=== PATIENT | female | born 1990 | race Caucasian/White ===

== ENCOUNTER → 2016-05-15 | Outpatient (REF) | payer MEDICARE, MEDICAID ==
[~2016-05-15] MED LIST: CYMB60CA3 PO; DULO30CA PO; FERR140T PO; FERR15DR9 PO; IBUP80TA PO; KEPP500T6 PO; YAZ3TAB PO
[2016-05-15 13:11] LABS: BASO % 0.1 % (0.0-1.0); EOS % 0.1 % (0.0-3.0); LARGE UNSTAINED CELL # 0.2 K/mm3 (0.0-0.4); LARGE UNSTAINED CELL % 2.8 % (0.0-4.0); LYMPH # 1.9 K/mm3 (1.5-6.5); LYMPH % 35.1 % (24.0-44.0); MEAN CORPUSCULAR HEMOGLOBIN 28.6 pg (27.0-33.0); MEAN CORPUSCULAR HGB CONC 32.4 g/dl (32.0-36.5); MEAN CORPUSCULAR VOLUME 88.5 fl (80.0-96.0); MONO # 0.2 K/mm3 (0.0-0.8); MONO % 4.6 % (0.0-5.0); NEUTROPHILS % 57.4 % (36.0-66.0); PLATELET COUNT, AUTOMATED 180 k/mm3 (150-450); RED CELL DISTRIBUTION WIDTH 13.6 % (11.5-14.5); WHITE BLOOD COUNT 5.3 K/mm3 (4.0-10.0)
[2016-05-15 13:55] LABS: ALT/SGPT 16 U/L (12-78); AST/SGOT 14 U/L (15-37)
[2016-05-15 13:56] LABS: ERYTHROCYTE SEDIMENTATION RATE 21 mm/hr (0-20)
== END ==
LOC: M LABNEURO 09:56
PROVIDERS: ATTEND Physician Assistant Medical
DX: G40.909 Epilepsy, unspecified, not intractable, without status epilepticus (principal); R51 Headache; M54.2 Cervicalgia

== ENCOUNTER → 2016-07-31 | Outpatient (REF) | payer MEDICARE, MEDICAID | LOC: M LAB REF 12:49 | PROVIDERS: ATTEND Specialist | DX: Z34.82 Encounter for supervision of other normal pregnancy, second trimester (principal) ==

== ENCOUNTER → 2016-08-15 | Outpatient (REF) | payer MEDICARE, MEDICAID | LOC: M LAB REF 13:05 | PROVIDERS: ATTEND Specialist | DX: Z34.81 Encounter for supervision of other normal pregnancy, first trimester (principal); N39.0 Urinary tract infection, site not specified ==

== ENCOUNTER → 2016-10-21 | Outpatient (CLI) | payer MEDICARE, MEDICAID ==
[~2016-10-21] MED LIST changes: +FERR15DR2 PO; -FERR15DR9 PO; +KEPP1TAB PO; -KEPP500T6 PO; +YAZ1TAB PO; -YAZ3TAB PO
--- NOTE | 2016-10-21 15:38 | REP ---
Obstetric ultrasound for anatomy: There is a single intrauterine gestation in a vertex presentation. There is motion and cardiac activity. The heart rate is 141 beats per minute. The placenta is posterior without placenta previa or abruptio and demonstrating grade zero maturity. The amniotic fluid volume subjectively is normal. The cervix measures 5.4 cm length. The maternal adnexa and cul-de-sac are unremarkable. Based on today's ultrasound the gestational age is 18-week 6 days with an HANNAH of 03/18/2017. weight is 279 grams (0 pounds, 9 ounces). This is the 58 percentile for 18 weeks 6 days. The following anatomic structures are identified and are unremarkable: Cranium, choroid plexus, cavum septum pellucidum, cerebellum, cisterna magna, lungs, left ventricular cardiac outflow tract, kidneys, bladder, spine, and upper lower extremities. Suboptimally demonstrated because of position are the intracranial lateral ventricles, facial profile, four-chamber view of the heart, cardiac right ventricular outflow tract and three-vessel cord. A followup study dedicated to these structures might be considered. Otherwise, there are no anomalies. Signed by Fletcher Encarnacion MD 10/21/2016 03:30 P
== END ==
LOC: M SMT 13:50
PROVIDERS: ATTEND Specialist
DX: Z36 Encounter for antenatal screening of mother (principal); Z3A.18 18 weeks gestation of pregnancy

== ENCOUNTER → 2016-11-14 | Outpatient (CLI) | payer MEDICARE, MEDICAID ==
[2016-11-14 13:32] LABS: MEAN CORPUSCULAR HEMOGLOBIN 31.7 pg (27.0-33.0); MEAN CORPUSCULAR HGB CONC 33.8 g/dl (32.0-36.5); MEAN CORPUSCULAR VOLUME 93.6 fl (80.0-96.0); RED CELL DISTRIBUTION WIDTH 14.2 % (11.5-14.5); WHITE BLOOD COUNT 6.4 K/mm3 (4.0-10.0)
[2016-11-14 13:46] LABS: FOLATE > 24.0 NG/ML; VITAMIN B12 LEVEL 321 PG/ML
== END ==
LOC: M SMT 11:50
PROVIDERS: ATTEND Advanced Practice Midwife
DX: R51 Headache (principal); K91.2 Postsurgical malabsorption, not elsewhere classified

== ENCOUNTER → 2016-11-20 | Outpatient (CLI) | payer MEDICARE, MEDICAID ==
--- NOTE | 2016-11-20 11:50 | REP ---
OBSTETRIC SONOGRAPHY: HISTORY: Supervision of , followup anatomy. FINDINGS: Scanning demonstrates a viable single intrauterine gestation in a variable lie. motion is observed and heart rate is recorded at 136 beats per minute. Closed cervical length measured transabdominally is 6.0 cm. Amniotic fluid is subjectively normal. A posterior placenta is seen grade 0 without evidence of previa or abruption. There has been appropriate interval growth. Exam quality is inhibited by maternal body habitus. Left ventricular cardiac outflow tract view is less than optimally achieved today, however this was observed previously. The following additional anatomic structures are identified and felt to be unremarkable today: cranium, choroid plexus, cavum, cerebellum and posterior fossa, face and profile, lungs, four-chamber heart with right ventricular outflow tract view, diaphragm, left-sided stomach, abdominal wall cord insertion, three-vessel cord, kidneys and bladder, spine, upper and lower extremities. Biometry Chart: BPD 5.7 cm = 23 weeks 4 days HC 21.1 cm = 23 weeks 1 day AC 19.1 cm = 23 weeks 6 days FL 3.9 cm = 22 weeks 5 days HL 4.0 cm = 24 weeks 1 day CD 2.2 cm = 20 weeks 5 days HC/AC ratio normal 1.11. Cephalic index normal 0.76. Estimated weight 582 grams, 1 pound 4 ounces, 49th percentile for 23 weeks 1 day. IMPRESSION: Viable single intrauterine gestation at 22 weeks 6 days by today's composite sonographic criteria. Expected gestational age estimate based on prior sonography is 23 weeks 1 day. HANNAH by prior sonography March 18, 2017. There has been appropriate interval growth. anatomic survey is felt to be complete. Signed by Abner Cardozo MD 11/20/2016 01:43 P
== END ==
LOC: M SMT 10:02
PROVIDERS: ATTEND Advanced Practice Midwife
DX: Z34.82 Encounter for supervision of other normal pregnancy, second trimester (principal); Z3A.23 23 weeks gestation of pregnancy

== ENCOUNTER → 2016-11-20 | Outpatient (CLI) | payer MEDICARE, MEDICAID | LOC: M SMT 10:05 | PROVIDERS: ATTEND Physician Assistant Medical | DX: Z51.81 Encounter for therapeutic drug level monitoring (principal); Z79.899 Other long term (current) drug therapy; R56.9 Unspecified convulsions ==

== ENCOUNTER → 2016-12-11 | Outpatient (CLI) | payer MEDICARE, MEDICAID ==
[2016-12-11 14:11] LABS: MEAN CORPUSCULAR HEMOGLOBIN 31.8 pg (27.0-33.0); MEAN CORPUSCULAR HGB CONC 34.3 g/dl (32.0-36.5); MEAN CORPUSCULAR VOLUME 92.5 fl (80.0-96.0); RED CELL DISTRIBUTION WIDTH 13.9 % (11.5-14.5); WHITE BLOOD COUNT 6.6 K/mm3 (4.0-10.0)
== END ==
LOC: M SMT 11:36
PROVIDERS: ATTEND Advanced Practice Midwife
DX: Z34.82 Encounter for supervision of other normal pregnancy, second trimester (principal)

== ENCOUNTER → 2016-12-25 | Outpatient (REF) | payer MEDICARE, MEDICAID | LOC: M LABNEURO 11:53 | PROVIDERS: ATTEND Physician Assistant Medical | DX: G40.909 Epilepsy, unspecified, not intractable, without status epilepticus (principal) ==

== ENCOUNTER → 2017-01-13 | Outpatient (CLI) | payer MEDICARE, MEDICAID ==
[~2017-01-13] MED LIST changes: +ACET50TA PO; +KEPP10002 PO; +PRENTAB9 PO; +VITA-182 PO
--- NOTE | 2017-01-13 13:24 | REP ---
Third trimester obstetric ultrasound for growth and amniotic fluid assessment: There is a single intrauterine gestation. position is variable. The heart rate is 153 beats per minute. The placenta is posterior. There is no placenta previa. The amniotic fluid volume is subjectively normal. The amniotic fluid index is 21.0 (8.8 - 23.8). The cervix measures 4.7 cm length. By the ultrasound today gestational age is 30 weeks 5 days with an HANNAH of 03/19/2017. According to the first ultrasound gestational age is 30 weeks 6 days. weight is 1818 grams (4 pounds, 0 ounces). This is the 59th percentile for 30 weeks 6 days. Signed by Fletcher Encarnacion MD 01/13/2017 01:16 P
== END ==
LOC: M SMT 11:16
PROVIDERS: ATTEND Advanced Practice Midwife
DX: Z34.83 Encounter for supervision of other normal pregnancy, third trimester (principal); O99.843 Bariatric surgery status complicating pregnancy, third trimester

== ENCOUNTER 2017-02-05 17:38 | Outpatient (CLI) | payer MEDICARE, MEDICAID ==
[~2017-02-05] VITALS: Ht 142.2 cm; Wt 98.3 kg
[~2017-02-05 17:38] MED LIST changes: -ACET50TA PO; -KEPP10002 PO; -PRENTAB9 PO; -VITA-182 PO
[2017-02-05 17:55] VITALS: BP 133/83
[2017-02-05] MEDS ORDERED: KEPP10002 PO (17:57)
[2017-02-05] MEDS ORDERED: VITA-182 PO (18:00)
[2017-02-05] MEDS ORDERED: PRENTAB9 PO (18:00)
[2017-02-05] MEDS ORDERED: ACET50TA PO (18:00)
== END 2017-02-05 18:47 | disposition home or self-care (01) ==
LOC: M LDO 17:38
PROVIDERS: ATTEND Obstetrics & Gynecology
DX: O47.03 False labor before 37 completed weeks of gestation, third trimester (principal); Z3A.33 33 weeks gestation of pregnancy; O99.353 Diseases of the nervous system complicating pregnancy, third trimester; G40.909 Epilepsy, unspecified, not intractable, without status epilepticus; O99.843 Bariatric surgery status complicating pregnancy, third trimester; O99.343 Other mental disorders complicating pregnancy, third trimester; F41.9 Anxiety disorder, unspecified; F32.9 Major depressive disorder, single episode, unspecified; O99.213 Obesity complicating pregnancy, third trimester; E66.9 Obesity, unspecified; Z79.899 Other long term (current) drug therapy; O99.333 Smoking (tobacco) complicating pregnancy, third trimester; F17.210 Nicotine dependence, cigarettes, uncomplicated

== ENCOUNTER → 2017-02-07 | Outpatient (CLI) | payer MEDICARE, MEDICAID ==
[~2017-02-07] MED LIST changes: +ACET50TA PO; +KEPP10002 PO; +PRENTAB9 PO; +VITA-182 PO
--- NOTE | 2017-02-07 16:23 | REP ---
Clinical: well-being . Comparison: 01/13/2017 . Findings: Examination demonstrates a single live advanced intrauterine in transverse (head to maternal left) presentation. motion is identified by technologist. Placenta is noted posteriorly and grade grade III without evidence for placenta previa or abruption. Amniotic fluid volume is normal. Cervix measures 3.7 cm in length and appears closed. No evidence for nuchal cord. Gestational age by LMP 34 weeks 3 days with HANNAH 03/18/2017 . Gestational age by current measurements 34 weeks 1 day with HANNAH 03/20/2017 . FHR equals 122 beats per minute. BPD 8.5 cm 34 weeks 3 days HC 32.4 cm 36 weeks 5 days AC 30.6 cm 34 weeks 4 days FL 6.4 cm 33 weeks 0 days HL 5.7 cm 33 weeks 0 days HC/AC ratio 1.06 Estimated weight 2404 grams ( 44th percentile). Amniotic fluid volume equals 16.2 cm (8.0 - 24.8). Umbilical cord SD ratio equals 2.10 (2.00 - 3.00). Impression: Single live advanced gestation in transverse lie demonstrating appropriate interval growth. Estimated weight normal. Amniotic fluid index normal. Signed by Rodney Cortez MD 02/07/2017 04:15 P
== END ==
LOC: M RAD 15:37
PROVIDERS: ATTEND Advanced Practice Midwife
DX: O99.843 Bariatric surgery status complicating pregnancy, third trimester (principal); Z3A.34 34 weeks gestation of pregnancy

== ENCOUNTER → 2017-02-19 | Outpatient (REF) | payer MEDICARE, MEDICAID | LOC: M LAB REF 13:10 | PROVIDERS: ATTEND Advanced Practice Midwife | DX: Z34.83 Encounter for supervision of other normal pregnancy, third trimester (principal); Z36.85 Encounter for antenatal screening for Streptococcus B ==

== ENCOUNTER 2017-03-08 16:16 | Outpatient (CLI) | payer MEDICARE, MEDICAID ==
[~2017-03-08] VITALS: Ht 144.8 cm; Wt 102.4 kg
[2017-03-08 16:34] VITALS: BP 127/86
== END 2017-03-08 17:38 | disposition home or self-care (01) ==
LOC: M LDO 16:16
PROVIDERS: ATTEND Obstetrics & Gynecology
DX: O47.1 False labor at or after 37 completed weeks of gestation (principal); Z3A.38 38 weeks gestation of pregnancy

== ENCOUNTER 2017-03-13 07:05 | Inpatient (IN) | payer MEDICARE, MEDICAID ==
[~2017-03-13] VITALS: Ht 142.2 cm; Wt 99.0 kg
[2017-03-13 07:25] VITALS: BP 131/75
[2017-03-13] MEDS ORDERED: LR 1,000 ML IV SCH ×3 (08:00→12:45)
[2017-03-13] MEDS ORDERED: LR 800 ML IV ONE (08:00)
[2017-03-13] MEDS ORDERED: BICITRA 30ML SOLN UDC PO ONE (08:00)
[2017-03-13 08:21] LABS: MEAN CORPUSCULAR HEMOGLOBIN 26.4 pg (27.0-33.0); MEAN CORPUSCULAR VOLUME 85.2 fl (80.0-96.0); PLATELET COUNT, AUTOMATED 157 10^3/uL (150-450); RED CELL DISTRIBUTION WIDTH 16.5 % (11.5-14.5); WHITE BLOOD COUNT 7.5 10^3/uL (4.0-10.0)
[2017-03-13] MEDS ORDERED: MORPHINE PRES-FREE INJ 10 MG/10 ML VIAL (J2274) As Ordered ONE (10:23)
[2017-03-13] MEDS ORDERED: OXYTOCIN INJ 10 UNITS/ML VIAL (J2590) As Ordered ONE (10:23)
[2017-03-13] MEDS ORDERED: KETOROLAC 60 MG/2 ML VIAL (J1885) As Ordered ONE (10:48)
[2017-03-13] MEDS ORDERED: ONDANSETRON 4MG/2ML VIAL (J2405) As Ordered ONE (10:48)
[2017-03-13] MEDS ORDERED: fentaNYL 100 MCG/2 ML INJECTION (J3010) As Ordered ONE (11:21)
[2017-03-13] MEDS ORDERED: PERCOCET 5MG/325MG TAB PO PRN (11:45)
[2017-03-13] MEDS ORDERED: ONDANSETRON 4MG/2ML VIAL (J2405) IV PRN ×2 (11:45→12:45)
[2017-03-13] MEDS ORDERED: MOM 30ML SUSPENSION UDC PO PRN (11:45)
[2017-03-13] MEDS ORDERED: OXYTOCIN DRIP 30 UNITS in APPROPRIATE DILUENT 1 EA IV ONE (11:45)
[2017-03-13] MEDS ORDERED: IBUP1TAB7 PO (11:45)
[2017-03-13] MEDS ORDERED: MEASLES,MUMPS,RUBELLA VACCINE INJ (MMR-II) (90707) SC SCH (11:45)
[2017-03-13] MEDS ORDERED: RHOGAM 300 MCG (1500 IU) INJ (J2790) IM SCH (11:45)
[2017-03-13] MEDS ORDERED: PERCOCET PO (11:46)
[2017-03-13] MEDS ORDERED: fentaNYL 100 MCG/2 ML INJECTION (J3010) IV PRN (12:45)
[2017-03-13] MEDS ORDERED: KETOROLAC 30 MG/ML VIAL (J1885) IV PRN (12:45)
[2017-03-13] MEDS ORDERED: MEPERIDINE INJ 25 MG/ML VIAL (J2175) IV PRN (12:45)
[2017-03-13 13:25] VITALS: BP 133/78
[2017-03-13] MEDS: DOCUSATE SODIUM 100 MG CAP PO SCH ×2 (13:41→20:53)
[2017-03-13] MEDS: FERROUS SULFATE 325MG TAB PO SCH (13:41)
[2017-03-13] MEDS: PRENATAL VITAMINS CHEWABLE TABLET PO SCH (13:42)
[2017-03-13 13:50] VITALS: BP 130/79
[2017-03-13] MEDS: KETOROLAC 30 MG/ML VIAL (J1885) IV SCH ×2 (17:33→23:39)
[2017-03-13 18:00] VITALS: BP 124/62
[2017-03-13] MEDS: levETIRAcetam 250MG TABLET (KEPPRA) PO SCH (21:46)
[2017-03-13 22:00] VITALS: BP 117/59
[2017-03-14] MEDS: KETOROLAC 30 MG/ML VIAL (J1885) IV SCH (05:10)
[2017-03-14 07:34] LABS: MEAN CORPUSCULAR HEMOGLOBIN 26.1 pg (27.0-33.0); MEAN CORPUSCULAR HGB CONC 30.4 g/dl (32.0-36.5); MEAN CORPUSCULAR VOLUME 85.9 fl (80.0-96.0); PLATELET COUNT, AUTOMATED 119 10^3/uL (150-450); RED CELL DISTRIBUTION WIDTH 16.9 % (11.5-14.5); WHITE BLOOD COUNT 7.3 10^3/uL (4.0-10.0)
[2017-03-14] MEDS: FERROUS SULFATE 325MG TAB PO SCH (08:15)
[2017-03-14] MEDS: DOCUSATE SODIUM 100 MG CAP PO SCH ×2 (08:15→21:06)
[2017-03-14] MEDS: PRENATAL VITAMINS CHEWABLE TABLET PO SCH (08:15)
[2017-03-14] MEDS: levETIRAcetam 250MG TABLET (KEPPRA) PO SCH ×2 (08:16→21:06)
[2017-03-14] MEDS: PERCOCET 5MG/325MG TAB PO PRN (09:31)
[2017-03-14 10:02] VITALS: BP 127/82
[2017-03-14] MEDS: IBUPROFEN 800 MG TAB PO SCH ×2 (13:00→21:06)
[2017-03-14 14:05] VITALS: BP 124/68
[2017-03-14 18:03] VITALS: BP 134/74
[2017-03-14 22:00] VITALS: BP 123/70
[2017-03-15] MEDS: IBUPROFEN 800 MG TAB PO SCH (04:49)
[2017-03-15 06:00] VITALS: BP 133/72
[2017-03-15] MEDS: FERROUS SULFATE 325MG TAB PO SCH (08:47)
[2017-03-15] MEDS: PRENATAL VITAMINS CHEWABLE TABLET PO SCH (08:47)
[2017-03-15] MEDS: DOCUSATE SODIUM 100 MG CAP PO SCH (08:47)
[2017-03-15] MEDS: PERCOCET 5MG/325MG TAB PO PRN (08:48)
[2017-03-15] MEDS: levETIRAcetam 250MG TABLET (KEPPRA) PO SCH (08:48)
--- NOTE | 2017-03-15 22:20 | RO ---
DATE OF PROCEDURE: 03/13/2017 PREPROCEDURE DIAGNOSIS: 39 weeks, prior section times one, undesired fertility. POSTPROCEDURE DIAGNOSIS: 39 weeks, prior section times one, undesired fertility. PROCEDURE: Repeat low transverse section with bilateral tubal ligation. SURGEON: Dr. Bayron Garcia FABRICATION SPECIALIST: Dr. Trena Stone ANESTHESIA: Spinal. ESTIMATED BLOOD LOSS: 600 mL. URINE OUTPUT: 200 mL. FINDINGS: 6 pound 13 ounce male . scores 8 and 9. Dense adhesions of the uterus to the anterior abdominal wall, adhesions of bowel to the right uterine sidewall and to the posterior uterus. Fallopian tubes were difficult to identify bilaterally even after dissection of extensive scar tissue, unable to identify fimbria on the left side, very distorted fimbria identified on the right side. Adhesions of omentum and bowel to the anterior abdominal wall. DESCRIPTION OF PROCEDURE: The patient was taken to the operating room where spinal anesthesia was induced. She was prepped and draped in a sterile fashion in the supine position. A Forbes catheter was placed. A Pfannenstiel skin incision was made with a scalpel and carried through to the fascia. The fascia was nicked and extended. The fascia was dissected off the rectus muscles. The uterus was noted to be densely adherent to the anterior abdominal wall. A window was created and a bladder blade was placed. A curvilinear incision was made in the lower uterine segment and the delivered from the vertex position without difficulty. The cord was doubly clamped and cut. The was handed off to the awaiting nurses. The placenta was expressed. After dissection of extensive scar tissue, the uterus was able to be exteriorized. Adhesions of the bowel to the right lateral sidewall were taken down sharply. Anterior abdominal wall adhesions circumferentially around the uterus were taken down sharply. Adhesions to the fallopian tubes were also taken down sharply. The uterus was closed with #0 Vicryl in a running locked fashion. A second imbricating layer of #0 Vicryl was placed. Due to distortion of the fallopian tubes, the decision was made to use Filshie clips to perform the tubal ligation. Filshie clip was applied at the mid portion of each fallopian tube without difficulty. It was, however, made clear to the patient that because of the difficulty in identifying the fallopian tubes, there was not a guarantee of tubal occlusion. The uterus was placed back in the abdominal cavity, and the peritoneum was closed with #2-0 Vicryl in a running fashion. The fascia was closed with #0 Vicryl in a running fashion. The subcutaneous tissue was irrigated. The deep layer was closed with #2-0 chromic. The skin was closed with #4-0 Monocryl subcuticular sutures. Sponge, instrument and needle counts were correct.
[2017-03-21 00:06] LABS: GC Butalbital 411 ng/mL (Cutoff=200)
== END 2017-03-15 11:09 | disposition home or self-care (01) | DRG 766 ==
LOC: M LDI 07:05 → M OBS 13:10
PROVIDERS: ADMIT Specialist; ATTEND Specialist
PROC: 0UL70DZ Occlusion of Bilateral Fallopian Tubes with Intraluminal Device, Open Approach (ICD-10-PCS; 2017-03-13)
PROC: 10D00Z1 Extraction of Products of Conception, Low, Open Approach (ICD-10-PCS; principal; 2017-03-13 10:30)
DX: O34.211 Maternal care for low transverse scar from previous cesarean delivery (principal); Z37.0 Single live birth; Z30.2 Encounter for sterilization; Z3A.39 39 weeks gestation of pregnancy

== ENCOUNTER → 2017-04-10 | Outpatient (REF) | payer MEDICARE, MEDICAID ==
[2017-04-13 00:07] LABS: LEVETIRACETAM (KEPPRA) 30.3 ug/mL (10.0-40.0)
== END ==
LOC: M LABNEURO 11:16
DX: R56.9 Unspecified convulsions (principal)
CPT/HCPCS: 36415

== ENCOUNTER → 2017-05-06 | Outpatient (CLI) | payer MEDICARE, MEDICAID | LOC: M RAD 13:52 | DX: G83.89 Other specified paralytic syndromes (principal) | CPT/HCPCS: 75809 ==

== ENCOUNTER → 2018-12-06 | Outpatient (REF) | payer MEDICARE, MEDICAID ==
[~2018-12-06] MED LIST changes: -ACET50TA PO; -DULO30CA PO; +DULO30CA9 PO; -FERR140T PO; +FERR140T2 PO; +IBUP1TAB7 PO; +MAPA500T2 PO; +PERCOCET PO
[2018-12-06 21:44] LABS: APPEARANCE, URINE CLEAR (CLEAR); BACTERIA, URINE AUTO 1+ (NEGATIVE); BILIRUBIN, URINE AUTO NEGATIVE (NEGATIVE); BLOOD, URINE BLOOD NEGATIVE (NEGATIVE); COLOR, URINE STRAW (YELLOW); GLUCOSE, URINE (UA) AUTO NEGATIVE (NEGATIVE); KETONE, URINE AUTO NEGATIVE (NEGATIVE); LEUKOCYTE ESTERASE, URINE AUTO 1+ (NEGATIVE); NITRITE, URINE AUTO NEGATIVE (NEGATIVE); PROTEIN, URINE AUTO NEGATIVE (NEGATIVE); RBC, URINE AUTO 1 /HPF (0-3); SPECIFIC GRAVITY URINE AUTO 1.005 (1.002-1.035); SQUAMOUS EPITHELIAL CELL UR AU 2 /HPF (0-6); UROBILINOGEN, URINE AUTO 0.2 mg/dL (0.0-2.0); WBC, URINE AUTO 1 /HPF (0-3)
== END ==
LOC: M LAB REF 14:46
PROVIDERS: ATTEND Physician Assistant Medical
DX: N39.0 Urinary tract infection, site not specified (principal)

== ENCOUNTER → 2024-01-09 | Outpatient (CLI) | payer MEDICARE, MEDICAID, OTHER ==
[~2024-01-09] MED LIST changes: -CYMB60CA3 PO; +CYMB60CA4 PO
[2024-01-09 17:35] LABS: HEMATOCRIT 42.1 % (36.0-47.0); HEMOGLOBIN 13.9 g/dl (12.0-15.5); MEAN CORPUSCULAR HEMOGLOBIN 31.7 pg (27.0-33.0); MEAN CORPUSCULAR VOLUME 96.1 fl (80.0-96.0); PLATELET COUNT, AUTOMATED 200 10^3/uL (150-450); RED BLOOD COUNT 4.38 10^6/uL (4.00-5.40); WHITE BLOOD COUNT 5.8 10^3/uL (4.0-10.0)
[2024-01-09 18:00] LABS: FERRITIN 19.1 NG/ML (7.3-270.7)
[2024-01-09 18:07] LABS: IRON (FE) 62 UG/DL (50-170)
[2024-01-09 18:08] LABS: ALBUMIN 3.3 G/DL (3.2-5.2); ALKALINE PHOSPHATASE 99 U/L (46-116); ALT/SGPT 16 U/L (7.0-40); AST/SGOT 11 U/L (<34); BILIRUBIN,TOTAL 0.3 MG/DL (0.3-1.2); BLOOD UREA NITROGEN 12 MG/DL (9-23); CARBON DIOXIDE LEVEL 27 MMOL/L (20-31); CHLORIDE LEVEL 110 MMOL/L (98-107); CHOLESTEROL LEVEL 181 MG/DL (<200); CHOLESTEROL RISK RATIO 4.11 (<5); GLOMERULAR FILTRATION RATE > 60.0 (>60); GLUCOSE, FASTING 78 MG/DL (60-100); LDL CHOLESTEROL 110.2 MG/DL (<100); PERCENT SATURATION 19.1 % (13.2-45.0); POTASSIUM SERUM 4.5 MMOL/L (3.5-5.1); SODIUM LEVEL 140 MMOL/L (136-145); TOTAL IRON BINDING CAPACITY 324 UG/DL (250-425); TOTAL PROTEIN 6.8 G/DL (5.7-8.2); TRIGLYCERIDES LEVEL 134 MG/DL (<150)
== END ==
LOC: M WUC 12:01
PROVIDERS: ATTEND Physician Assistant
DX: E66.9 Obesity, unspecified (principal); Z68.43 Body mass index [BMI] 50.0-59.9, adult; Z13.1 Encounter for screening for diabetes mellitus; Z13.220 Encounter for screening for lipoid disorders; D50.9 Iron deficiency anemia, unspecified

== ENCOUNTER 2025-02-14 14:58 | Inpatient (IN) | payer MEDICARE, MEDICAID ==
[~2025-02-14] VITALS: Ht 144.8 cm; Wt 119.8 kg
[2025-02-14 15:11] VITALS: BP 141/78; TEMP 97.7; O2SAT 98
[2025-02-14] MEDS ORDERED: HEPARIN SOD 5000 UNITS/ML 1 ML VIAL/SYRINGE SQ SCH (15:15)
[2025-02-14] MEDS ORDERED: levETIRAcetam INJection 1,500 MG in IV 1 EA IV SCH (15:20)
[2025-02-14 15:59] LABS: ABG BASE EXCESS -1.5 (-2.0-2.0); ABG HCO3 22.0 MMOL/L (22.0-26.0); ABG O2 SATURATION 96.6 % (95.0-99.0); ABG PARTIAL PRESSURE CO2 33.6 mmHg (35.0-45.0); ABG PARTIAL PRESSURE O2 84.0 mmHg (75.0-100.0); ABG STANDARD HCO3 23.2 MMOL/L. (22.0-26.0); ABG TOTAL CO2 23.0 MMOL/L (22.0-29.0); ABG pH (ARTERIAL) 7.433 UNITS (7.350-7.450)
[2025-02-14] MEDS ORDERED: PROP20TA72 PO (16:08)
[2025-02-14] MEDS ORDERED: FLUO40CA PO (16:08)
[2025-02-14] MEDS ORDERED: DOXE25CA PO (16:08)
[2025-02-14] MEDS ORDERED: ARIP1TAB6 PO (16:08)
[2025-02-14] MEDS ORDERED: IMIT50TA PO (16:08)
[2025-02-14] MEDS ORDERED: CALC1TAB63 PO (16:10)
[2025-02-14] MEDS ORDERED: HOME MED LIST COMPLETE! XX SCH (16:10)
[2025-02-14] MEDS ORDERED: FERR324T2 PO (16:10)
[2025-02-14 16:20] LABS: BASO # 0.0 10^3/uL (0.0-0.2); BASO % 0.1 % (0.0-1.0); EOS # 0.0 10^3/uL (0.0-0.5); EOS % 0.0 % (0.0-3.0); LYMPH # 2.1 10^3/uL (1.5-5.0); LYMPH % 29.2 % (24.0-44.0); MONO # 0.4 10^3/uL (0.0-0.8); MONO % 5.8 % (2.0-8.0); NEUTROPHILS # 4.5 10^3/uL (1.5-8.5); NEUTROPHILS % 64.6 % (36.0-66.0); PLATELET COUNT, AUTOMATED 220 10^3/uL (150-450)
[2025-02-14 16:45] LABS: C REACTIVE PROTEIN QUANTITATIV < 0.50 MG/DL (<1.0)
[2025-02-14 16:46] LABS: ALT/SGPT 23 U/L (7.0-40); AST/SGOT 20 U/L (<34); CALCIUM LEVEL 8.2 MG/DL (8.5-10.1); CARBON DIOXIDE LEVEL 22 MMOL/L (20-31); CHLORIDE LEVEL 109 MMOL/L (98-107); CREATININE FOR GFR 0.67 MG/DL (0.55-1.30); GLOMERULAR FILTRATION RATE > 90.0 (>60); MAGNESIUM LEVEL 2.0 MG/DL (1.8-2.4); PHOSPHORUS LEVEL 3.4 MG/DL (2.5-4.9); POTASSIUM SERUM 4.1 MMOL/L (3.5-5.1); SODIUM LEVEL 142 MMOL/L (136-145)
[2025-02-14 17:03] LABS: INR 0.97
[2025-02-14] MEDS: levETIRAcetam INJection 1,500 MG in IV 1 EA IV SCH (18:47)
[2025-02-14] MEDS: ONDANSETRON 4MG/2ML VIAL IV PRN (18:47)
[2025-02-14] MEDS: ACETAMINOPHEN 325 MG TAB PO PRN (18:48)
[2025-02-14 20:00] VITALS: BP 108/58; TEMP 98.6; O2SAT 97
[2025-02-14] MEDS: DOXEPIN 25 MG CAP PO SCH (20:35)
[2025-02-14 21:00] VITALS: BP 111/68; O2SAT 98
[2025-02-14 22:00] VITALS: BP 103/51; O2SAT 96
[2025-02-14 23:00] VITALS: BP 119/70; O2SAT 98
[2025-02-14 23:09] LABS: APPEARANCE, URINE CLOUDY (CLEAR); BACTERIA, URINE AUTO 1+ (NEGATIVE); BILIRUBIN, URINE AUTO NEGATIVE (NEGATIVE); BLOOD, URINE BLOOD 3+ (NEGATIVE); GLUCOSE, URINE (UA) AUTO NEGATIVE (NEGATIVE); KETONE, URINE AUTO NEGATIVE (NEGATIVE); LEUKOCYTE ESTERASE, URINE AUTO NEGATIVE (NEGATIVE); MUCUS, URINE SMALL (NEGATIVE); NITRITE, URINE AUTO NEGATIVE (NEGATIVE); PROTEIN, URINE AUTO 2+ mg/dL (NEGATIVE); RBC, URINE AUTO TNTC /HPF (0-3); SPECIFIC GRAVITY URINE AUTO 1.032 (1.002-1.035); SQUAMOUS EPITHELIAL CELL UR AU 2 /HPF (0-6); UROBILINOGEN, URINE AUTO 2.0 mg/dL (0.0-2.0); WBC, URINE AUTO 45 /HPF (0-3)
[2025-02-14 23:28] LABS: BARBITURATES URINE NEGATIVE (NEGATIVE); CANNABINOIDS URINE NEGATIVE (NEGATIVE); COCAINE METABOLITE URINE NEGATIVE (NEGATIVE); METHADONE URINE NEGATIVE (NEGATIVE); OPIATES URINE NEGATIVE (NEGATIVE); PHENCYCLIDINE URINE NEGATIVE (NEGATIVE)
[2025-02-14 23:29] LABS: AMPHETAMINES LEVEL URINE NEGATIVE (NEGATIVE); BENZODIAZEPINES URINE NEGATIVE (NEGATIVE)
[2025-02-15] VITALS (11 sets, daily range): BP systolic 102–148; BP diastolic 56–83; TEMP 97.6–98.6; O2SAT 95–98
[2025-02-15 05:11] LABS: BASO # 0.0 10^3/uL (0.0-0.2); BASO % 0.0 % (0.0-1.0); EOS # 0.0 10^3/uL (0.0-0.5); EOS % 0.0 % (0.0-3.0); LYMPH # 1.6 10^3/uL (1.5-5.0); LYMPH % 33.8 % (24.0-44.0); MONO # 0.3 10^3/uL (0.0-0.8); MONO % 7.0 % (2.0-8.0); NEUTROPHILS # 2.8 10^3/uL (1.5-8.5); NEUTROPHILS % 59.0 % (36.0-66.0); PLATELET COUNT, AUTOMATED 214 10^3/uL (150-450)
[2025-02-15 05:32] LABS: ALT/SGPT 19 U/L (7.0-40); AST/SGOT 16 U/L (<34); CALCIUM LEVEL 8.0 MG/DL (8.5-10.1); CARBON DIOXIDE LEVEL 24 MMOL/L (20-31); CHLORIDE LEVEL 108 MMOL/L (98-107); CREATININE FOR GFR 0.72 MG/DL (0.55-1.30); GLOMERULAR FILTRATION RATE > 90.0 (>60); MAGNESIUM LEVEL 2.0 MG/DL (1.8-2.4); PHOSPHORUS LEVEL 4.3 MG/DL (2.5-4.9); POTASSIUM SERUM 4.1 MMOL/L (3.5-5.1); SODIUM LEVEL 142 MMOL/L (136-145)
[2025-02-15] MEDS: FLUoxetine 20 MG CAP PO SCH (08:34)
[2025-02-15] MEDS: HEPARIN SOD 5000 UNITS/ML 1 ML VIAL/SYRINGE SQ SCH (08:34)
[2025-02-15] MEDS: levETIRAcetam INJection 1,500 MG in IV 1 EA IV SCH (08:43)
[2025-02-15] MEDS: LACOSAMIDE 10 MG/ML 20 ML VIAL IV SCH (08:43)
[2025-02-15] MEDS: LACOSAMIDE 50 MG TAB PO SCH (21:10)
[2025-02-16 04:12] VITALS: BP 120/66; TEMP 97.9; O2SAT 97
[2025-02-16] MEDS ORDERED: VIMP50TA3 PO (09:32)
== END 2025-02-16 13:30 | disposition home or self-care (01) | DRG 101 ==
LOC: M ICU 14:58 → M MS4PR 02-15 17:12
PROVIDERS: ADMIT Internal Medicine; ATTEND Internal Medicine
DX: G40.909 Epilepsy, unspecified, not intractable, without status epilepticus (principal); T85.02XA Displacement of ventricular intracranial (communicating) shunt, initial encounter; F31.9 Bipolar disorder, unspecified; G43.909 Migraine, unspecified, not intractable, without status migrainosus; Z98.84 Bariatric surgery status; F41.9 Anxiety disorder, unspecified; E66.01 Morbid (severe) obesity due to excess calories; D64.9 Anemia, unspecified; Z79.899 Other long term (current) drug therapy; Q03.9 Congenital hydrocephalus, unspecified